=== PATIENT | male | born 1950 | race Caucasian/White ===

== ENCOUNTER 2020-12-30 07:25 | Emergency (ER) | payer MEDICARE, MEDICAID ==
[~2020-12-30] VITALS: Ht 175.3 cm; Wt 87.1 kg
[2020-12-30] MEDS ORDERED: HYDROcodone-ACET 5/325MG TAB PO ONE (10:45)
[2020-12-30 11:06] LABS: INR 1.01 (0.9-1.15)
[2020-12-30 11:59] LABS: Basophils # (auto) 0.1 10 ^3/uL (0-0.2); Basophils % (auto) 0.9 % (0.0-2.0); Neutrophils % (auto) 50.1 % (37.0-80.0); Red Blood Cells 4.21 10^6/uL (4.5-5.90)
[2020-12-30 12:00] LABS: Eosinophils # (auto) 1.1 10 ^3/uL (0-0.8); Hematocrit 37.9 % (41.0-53.0); Hemoglobin 12.7 g/dL (13.5-17.5); Lymphocytes # (auto) 3.5 10 ^3/uL (0.4-5.4); Lymphocytes % (auto) 27.4 % (10.0-50.0); Mean Corpuscular Hemoglobin 30.2 pg (28.0-32.0); Mean Corpuscular Hgb Conc. 33.5 g/dL (32.0-36.0); Mean Corpuscular Volume 90.1 fL (80.0-100.0); Monocytes # (auto) 1.6 10 ^3/uL (0-1.3); Monocytes % (auto) 12.6 % (0.0-12.0); Neutrophils # (auto) 6.4 10 ^3/uL (1.6-8.6); Nucleated Red Blood Cells % 0.2 %; Platelet Count (auto) 486 10^3/uL (140-450); Red Cell Distribution Width 15.5 % (11.8-14.3); White Blood Cell 12.7 10^3/uL (4.4-10.8)
[2020-12-30 12:30] LABS: Potassium 3.4 mmol/L (3.5-5.1)
[2020-12-30 12:38] LABS: Albumin 3.1 g/dL (3.4-5.0); BUN/Creatinine Ratio 14.7; Bilirubin, Total 0.4 mg/dL (0.2-1.0); Calcium 8.9 mg/dL (8.5-10.1); Total Protein 7.3 g/dL (6.4-8.2)
[2020-12-30 13:00] VITALS: BP 147/84
[2020-12-30] MEDS ORDERED: LIDOCAINE 1% (LOCAL ANESTH.) PF 5ml SDV ID ONE (13:45)
[2020-12-30] MEDS ORDERED: SODIUM CHLOR 0.9% PF (SALINE LOCK) 10ML VIAL/SYR IV SCH (22:00)
== END 2020-12-30 14:07 | disposition home or self-care (01) ==
LOC: ER 07:25
DX: L03.115 Cellulitis of right lower limb (principal); Z95.828 Presence of other vascular implants and grafts
CPT/HCPCS: 36415; 36569; 71045; 80053; 85025; 85610; 85730; 99285; C1751; J7050